=== PATIENT | female | born 1945 | race African-American/Black ===

== ENCOUNTER → 2021-10-31 | Outpatient (CLI) | payer MEDICARE ==
--- NOTE | 2021-10-31 14:55 | RAD ---
Exam Date: 10/31/2021 10:09 AM MRI RIGHT LOWER EXTREMITY JOINT WITHOUT Indication: Reason: ANTERIOR TIBAL SYNDROME. RIGHT ANKLE PAIN / Spl. Instructions: / History: . TECHNIQUE: Multiplanar MR images of the ankle without intravenous contrast. COMPARISON: Radiographs from August 30, 2021 FINDINGS: The anterior and posterior talofibular ligaments are intact. The anterior and posterior tibiofibular ligaments are intact. The calcaneofibular ligament is intact. The deltoid and spring ligaments are intact. Lisfranc ligament is intact. The posterior tibial tendon, flexor digitorum longus tendon, and flexor hallucis longus tendon are in tact and within normal limits. The peroneal tendons are intact. Visualized extensor tendons are int act. Achilles tendon is intact and within normal limits. Mild scattered degenerative marrow changes are noted. Bone marrow otherwise demonstrates normal sign al on all sequences. There is no acute fracture. Mild calcaneal enthesopathy is noted. The visualized tarsal tunnel, sinus tarsi and plantar fascia a re within normal limits. Plantar fascia is partially excluded from the [id number]. IMPRESSION: Mild degenerative changes noted. Intact ligaments and tendons. No acute fracture. Electronically signed by: Kamari Mccray MD (10/31/2021 2:53 PM) [id number]
== END ==
LOC: MRI 09:47
PROVIDERS: ATTEND Podiatrist
DX: M19.071 Primary osteoarthritis, right ankle and foot (principal); M77.31 Calcaneal spur, right foot; M76.811 Anterior tibial syndrome, right leg
CPT/HCPCS: 73721